=== PATIENT | female | born 1955 | race Caucasian/White ===

== ENCOUNTER → 2021-11-22 | Outpatient (CLI) | LOC: LABNPT 14:40 | PROVIDERS: ATTEND Registered Nurse Emergency | DX: Z20.822 Contact with and (suspected) exposure to COVID-19 (principal) | CPT/HCPCS: 87635 ==

== ENCOUNTER 2021-11-30 09:11 | Outpatient (CLI) | payer MEDICAID ==
[~2021-11-30] VITALS: Ht 152.4 cm; Wt 52.6 kg
[2021-11-30 09:19] VITALS: BP 128/74
[2021-11-30] MEDS ORDERED: ACETAMINOPHEN 500 MG TAB (TYLENOL) PO PRN (09:30)
[2021-11-30] MEDS ORDERED: EPINEPHrine INJECTION 1 MG/ML AMP IM PRN (09:30)
[2021-11-30] MEDS ORDERED: ONDANSETRON 4 MG/2 ML (SDV) Z0FRAN IV PRN (09:30)
[2021-11-30] MEDS ORDERED: diphenhydrAMINE 50 MG/ML INJ (BENADRYL) IV PRN (09:30)
[2021-11-30] MEDS ORDERED: SOTROVIMAB 500 MG/NS 100 ML IVPB IV ONE ×2 (09:30)
[2021-11-30 10:43] VITALS: BP 141/76
== END 2021-11-30 10:50 | disposition home or self-care (01) ==
LOC: INFUSION 09:11
PROVIDERS: ATTEND Registered Nurse Emergency
DX: U07.1 COVID-19 (principal)

== ENCOUNTER → 2022-01-31 | Outpatient (CLI) | payer MEDICARE, MEDICAID ==
[~2022-01-31] MED LIST: GUAI120013 PO; LEVO500T81 PO; PRD20T PO
--- NOTE | 2022-01-31 15:22 | Diagnostic Imaging Report ---
INDICATION: Cough. TIME OF EXAM: 2:59 PM. COMPARISON: No prior studies are available for comparison. FINDING: The heart size is normal. The pulmonary vascularity is unremarkable. The lungs are clear. No infiltrate, effusion, or pneumothorax is detected. IMPRESSION: No acute cardiopulmonary process is detected. Dictated by: Dictated on workstation # [id number]
== END ==
LOC: RAD FS 14:46
PROVIDERS: ATTEND Registered Nurse Emergency
DX: R05.1 Acute cough (principal)
CPT/HCPCS: 71046

== ENCOUNTER 2022-02-01 19:19 | Emergency (ER) | payer MEDICARE, MEDICAID ==
[~2022-02-01] VITALS: Ht 162 cm; Wt 79.0 kg
[2022-02-01] MEDS ORDERED: KETOROLAC 30 MG/ML VIAL IVP STA (19:20)
[2022-02-01 19:36] LABS: BASOPHILS % (AUTO) 0 % (0-10); EOSINOPHILS # (AUTO) 0.2 10^3/uL (0.0-0.3); EOSINOPHILS % (AUTO) 2 % (0-10); HEMATOCRIT 37 % (35-52); HEMOGLOBIN 12.4 g/dL (11.5-16.0); LYMPHOCYTES # (AUTO) 1.7 10^3/uL (1.0-4.0); LYMPHOCYTES % (AUTO) 16 % (12-44); MEAN CORPUSCULAR HEMOGLOBIN 28 pg (25-34); MEAN CORPUSCULAR HGB CONC 34 g/dL (32-36); MEAN CORPUSCULAR VOLUME 85 fL (80-99); MEAN PLATELET VOLUME 10.4 fL (9.0-12.2); MONOCYTES # (AUTO) 0.7 10^3/uL (0.0-1.0); MONOCYTES % (AUTO) 7 % (0-12); NEUTROPHILS # (AUTO) 8.3 10^3/uL (1.8-7.8); NEUTROPHILS % (AUTO) 75 % (42-75); PLATELET COUNT 239 10^3/uL (130-400); WHITE BLOOD COUNT 11.1 10^3/uL (4.3-11.0)
[2022-02-01 19:37] VITALS: BP 131/116
--- NOTE | 2022-02-01 19:59 | Diagnostic Imaging Report ---
INDICATION: cough, left sided chest pain COMPARISON: 01/31/2022 FINDINGS: Single frontal view of the chest demonstrates normal heart size and pulmonary vascularity. The lungs are well aerated and clear. No large pleural effusion or pneumothorax is seen. The visualized osseous structures show no acute abnormalities. IMPRESSION: 1. No acute cardiopulmonary process. Dictated by: Dictated on workstation # [id number]
[2022-02-01 20:02] LABS: ALKALINE PHOSPHATASE 61 U/L (40-136); BILIRUBIN,TOTAL 0.2 MG/DL (0.1-1.0); BUN/CREATININE RATIO 19; CALCIUM 8.9 MG/DL (8.5-10.1); CARBON DIOXIDE 22 MMOL/L (21-32); CHLORIDE 103 MMOL/L (98-107); GFR ESTIMATED 81; GLUCOSE 121 MG/DL (70-105); MAGNESIUM 1.8 MG/DL (1.6-2.4); SODIUM 138 MMOL/L (135-145)
[2022-02-01 20:03] LABS: ALANINE AMINOTRANSFERASE 12 U/L (0-55); LIPASE 33 U/L (8-78); TOTAL PROTEIN 7.4 GM/DL (6.4-8.2)
[2022-02-01 20:09] LABS: BILIRUBIN,URINE NEGATIVE (NEGATIVE); CLARITY,URINE CLEAR; COLOR,URINE YELLOW; GLUCOSE, URINE (UA) NEGATIVE (NEGATIVE); KETONES,URINE NEGATIVE (NEGATIVE); LEUKOCYTE ESTERASE ,URINE 2+ (NEGATIVE); NITRITE,URINE NEGATIVE (NEGATIVE); PH,URINE 6.5 (5-9); PROTEIN,URINE NEGATIVE (NEGATIVE)
--- NOTE | 2022-02-01 20:09 | ED Chest Pain ---
General Chief Complaint: Chest Pain Stated Complaint: CP Nursing Triage Note: PT PRESENT VIA EMS WITH C/O CHEST PAIN THAT STARTED YESTERDAY. REPORTS PAIN IS LOCATED UNDER HER LEFT BREAST AND DOES NOT RADIATE. REPORTS THE PAIN IS SHARP AND WORSE WITH MOVEMENT Source: patient, EMS History of Present Illness Date Seen by Provider: Feb 01, 2022 Time Seen by Provider: 19:19 Initial Comments 67-year-old female presenting from [place] [facility] by EMS with complaints of pain and the left chest under her breast. This started yesterday and she was seen in the clinic for it. She also has been having a nonproductive cough. She had a chest x-ray yesterday that did not show any acute process in her lungs and chest. She continued to have pain and at times is causing spasms. She is holding her breath with the pain at times as well. EMS was called to bring her to the emergency department tonight since she continued to have pain throughout the day. She denies having nausea, fever, vomiting, chills, headache, abdominal pain. She denies having pain like this in the past. She had not taken anything for the pain at home prior to coming. Timing/Duration: 1-2 days Severity/Quality: severe, sharp Location: other (Under her left breast) Radiation: no radiation Activities at Onset: none Prior CP/Workup: no prior chest pain, no prior cardiac workup ASA po QM CONSULTANT: Yes (EMS administered 324 mg ) NTG SL QM CONSULTANT: No Associated Symptoms: No abdominal pain, No back pain, No diaphoresis, No dizziness, No edema, No fatigue, No fever/chills, No headache, No heartburn, No nausea/vomiting, No rash, No shortness of breath, No swelling/lump in chest, No syncope, No weakness Allergies and Home Medications Allergies Coded Allergies: No Known Drug Allergies (Unverified , 11/23/21) Patient Home Medication List Home Medication List Reviewed: Yes Guaifenesin (Mucinex) 1,200 Mg Tab.er.12h, 1,200 MG PO BID Prescribed by: RAFA MARTE on 02/01/222125 Levofloxacin (Levofloxacin) 500 Mg Tablet, 500 MG PO DAILY Prescribed by: RAFA CHAWLAYART on 02/01/222125 Prednisone (Prednisone) 20 Mg Tab, 40 MG PO DAILY Prescribed by: RAFA MARTE on 02/01/222125 Review of Systems Review of Systems Constitutional: No chills, No fever EENTM: Nose Congestion (Mild amount of congestion and cough with congestion draining down the back of her throat) Respiratory: Cough; Denies Shortness of Air, Denies Stridor, Denies Wheezing Cardiovascular: See HPI; Denies Edema, Denies Lightheadedness Gastrointestinal: No Symptoms Reported Musculoskeletal: muscle cramps (left chest wall under her left breast) Skin: no symptoms reported Psychiatric/Neurological: Anxiety Past Nnmyyoh-Eutkjn-Nnwbbh Hx Patient Social History Tobacco Use?: No Smoking Status: Former Smoker Substance use?: No Alcohol Use?: No Pt feels they are or have been: No Immunizations Up To Date Tetanus Booster (TDap): Unknown Influenza Vaccine Up-to-Date: Yes; Up-to-Date Seasonal Allergies Seasonal Allergies: No Past Medical History Surgeries: Yes Coronary Stent, Hysterectomy Respiratory: No Cardiac: Yes (Cardiac Arrest) Heart Attack, High Cholesterol, Hypertension Neurological: Yes (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 0oz. [id number]; 30.00 BMI Method:Stated General Appearance: Chronically ill, Mild Distress HEENT: PERRL/EOMI, Pharynx Normal Neck: Full Range of Motion, Supple Respiratory: Chest Non Tender, No Accessory Muscle Use, No Respiratory Distress, Decreased Breath Sounds (with transmitted upper airway congestion sounds) Cardiovascular: Regular Rate, Rhythm, No Edema, Normal Peripheral Pulses Gastrointestinal: Normal Bowel Sounds, No Pulsatile Mass, Non Tender, Soft Rectal: Deferred Extremity: Normal Capillary Refill, Normal Inspection, Non Tender, No Calf Tenderness, No Pedal Edema Neurologic/Psychiatric: Alert, Oriented x3, straddle buggy operator II-XII Norm as Tested Skin: Normal Color, Warm/Dry Focused Exam Lactate Level 02/01/22 19:20: Lactic Acid Level 1.26 Lactic Acid Level Laboratory Tests Test 02/01/22 19:20 Lactic Acid Level 1.26 MMOL/L (0.50-2.00) Progress/Results/Core Measures Results/Orders Lab Results Laboratory Tests Test 02/01/22 19:20 02/01/22 20:00 Range/Units White Blood Count 11.1 H 4.3-11.0 10^3/uL Red Blood Count 4.36 3.80-5.11 10^6/uL Hemoglobin 12.4 11.5-16.0 g/dL Hematocrit 37 35-52 % Mean Corpuscular Volume 85 80-99 fL Mean Corpuscular Hemoglobin 28 25-34 pg Mean Corpuscular Hemoglobin Concent 34 32-36 g/dL Red Cell Distribution Width 13.8 10.0-14.5 % Platelet Count 239 130-400 10^3/uL Mean Platelet Volume 10.4 9.0-12.2 fL Immature Granulocyte % (Auto) 0 % Neutrophils (%) (Auto) 75 42-75 % Lymphocytes (%) (Auto) 16 12-44 % Monocytes (%) (Auto) 7 0-12 % Eosinophils (%) (Auto) 2 0-10 % Basophils (%) (Auto) 0 0-10 % Neutrophils # (Auto) 8.3 H 1.8-7.8 10^3/uL Lymphocytes # (Auto) 1.7 1.0-4.0 10^3/uL Monocytes # (Auto) 0.7 0.0-1.0 10^3/uL Eosinophils # (Auto) 0.2 0.0-0.3 10^3/uL Basophils # (Auto) 0.0 0.0-0.1 10^3/uL Immature Granulocyte # (Auto) 0.0 0.0-0.1 10^3/uL Prothrombin Time 14.0 12.2-14.7 SEC INR Comment 1.0 0.8-1.4 Activated Partial Thromboplast Time 31 24-35 SEC Sodium Level 138 135-145 MMOL/L Potassium Level 4.0 3.6-5.0 MMOL/L Chloride Level 103 98-107 MMOL/L Carbon Dioxide Level 22 21-32 MMOL/L Anion Gap 13 5-14 MMOL/L Blood Urea Nitrogen 15 7-18 MG/DL Creatinine 0.80 0.60-1.30 MG/DL Estimat Glomerular Filtration Rate 81 BUN/Creatinine Ratio 19 Glucose Level 121 H 70-105 MG/DL Lactic Acid Level 1.26 0.50-2.00 MMOL/L Calcium Level 8.9 8.5-10.1 MG/DL Corrected Calcium 8.9 8.5-10.1 MG/DL Magnesium Level 1.8 1.6-2.4 MG/DL Total Bilirubin 0.2 0.1-1.0 MG/DL Aspartate Amino Transf (AST/SGOT) 20 5-34 U/L Alanine Aminotransferase (ALT/SGPT) 12 0-55 U/L Alkaline Phosphatase 61 40-136 U/L Myoglobin < 21.0 10.0-92.0 NG/ML Troponin I < 0.30 <0.30 NG/ML Pro-B-Type Natriuretic Peptide 889.1 H <75.0 PG/ML Total Protein 7.4 6.4-8.2 GM/DL Albumin 4.0 3.2-4.5 GM/DL Lipase 33 8-78 U/L Urine Color YELLOW Urine Clarity CLEAR Urine pH 6.5 5-9 Urine Specific [place] 1.015 L 1.016-1.022 Urine Protein NEGATIVE NEGATIVE Urine Glucose (UA) NEGATIVE NEGATIVE Urine Ketones NEGATIVE NEGATIVE Urine Nitrite NEGATIVE NEGATIVE Urine Bilirubin NEGATIVE NEGATIVE Urine Urobilinogen 0.2 < = 1.0 MG/DL Urine Leukocyte Esterase 2+ H NEGATIVE Urine RBC (Auto) NEGATIVE NEGATIVE Urine RBC NONE /HPF Urine WBC 25-50 H /HPF Urine Squamous Epithelial Cells 25-50 H /HPF Urine Crystals NONE /LPF Urine Bacteria FEW H /HPF Urine Casts NONE /LPF Urine Mucus NEGATIVE /LPF Urine Culture Indicated YES My Orders Orders - RAFA MARTE MD Cbc With Automated Diff (02/01/22 19:20) Magnesium (02/01/22 19:20) Chest 1 View Ap/Pa Only (02/01/22 19:20) Ekg Tracing (02/01/22 19:20) Comprehensive Metabolic Panel (02/01/22 19:20) Myoglobin Serum (02/01/22 19:20) Protime With Inr (02/01/22 19:20) Partial Thromboplastin Time (02/01/22 19:20) O2 (02/01/22 19:20) Monitor-Rhythm Ecg Trace Only (02/01/22 19:20) Ed Iv/Invasive Line Start (02/01/22 19:20) Lipase (02/01/22 19:20) Troponin I Fs (02/01/22 19:20) Probnp Fs (02/01/22 19:20) Blood Culture (02/01/22 19:20) Lactic Acid Analyzer (02/01/22 19:20) Ua Culture If Indicated (02/01/22 19:20) Ketorolac Injection (Toradol Injection) (02/01/22 19:20) Orphenadrine Inj (Ed Only) (Norflex Inje (02/01/22 20:15) Fentanyl Inj (Sublimaze Injection) (02/01/22 20:15) Ct Angio Chest W (02/01/22 20:15) Dexamethasone Injection (Decadron Inje (02/01/22 20:15) Urine Culture (02/01/22 20:00) Iohexol Injection (Omnipaque 350 Mg/Ml 1 (02/01/22 20:30) Received Contrast (Hold Metformin- Contr (02/01/22 20:30) Sodium Chloride Flush (Catheter Flush Sy (02/01/22 20:30) Ns (Ivpb) (Sodium Chloride 0.9% Ivpb Bag (02/01/22 20:30) Ceftriaxone 1 Gm Pre-Mix (Rocephin 1 Gm (02/01/22 20:31) Medications Given in ED Current Medications Medications Dose Ordered Sig/Daniella Route Start Time Stop Time Status Last Admin Dose Admin Iohexol 100 ml ONCE ONCE IV 02/01/22 20:30 02/01/22 20:31 DC 02/01/22 20:51 80 ML Sodium Chloride 10 ml NEEDED PRN IV 02/01/22 20:30 02/01/22 20:52 10 ML Sodium Chloride 100 ml ONCE ONCE IV 02/01/22 20:30 02/01/22 20:31 DC 02/01/22 20:52 100 ML Vital Signs/I&O 02/01/22 02/01/22 02/01/22 02/01/22 19:37 19:37 19:45 20:11 Temp 37.7 Pulse 95 90 85 Resp 26 22 20 B/P (MAP) 131/116 (121) 136/106 149/68 Pulse Ox 91 91 91 95 O2 Delivery Room Air Room Air Room Air Nasal Cannula O2 Flow Rate 2.00 02/01/22 20:56 Pulse 77 Resp 18 B/P (MAP) 156/74 Pulse Ox 99 O2 Delivery Nasal Cannula O2 Flow Rate 2.00 Blood Pressure Mean: 116 Progress Progress Note #1: Progress Note obtain xrays to look for pneumonia or effusion or mass to cause her pain in chest. check labs to look for abnromality with blood count, electrolytes, cardiac enzymes, blood cultures with lactic acid, UA, coags. Give Toradol to try and help with pain in chest Differential diagnosis includes pleurisy, pneumonia, acute coronary syndrome, myocardial infarction, chest wall pain, chest wall strain Progress Note #2: Progress Note Electrocardiogram shows normal sinus rhythm without ST elevation. She does have a prolonged QT interval with a QTc interval of 527 ms this is new from her prior tracing done in 2019. She has no acute significant normality on her chest x-ray and it appears similar to the one done yesterday. Her labs for her CBC show white blood cell count at the upper limit of normal of 11.1. Her chemistry panel appears stable without acute significant abnormality. Her troponin is less than 0.3. Her proBNP is elevated to 889, but with age adjustment she is still less than 900. Will check CT angiogram to see if there is any PE or other abnormality to indicate a reason for her pleuritic chest pain. Try Decadron 10 mg IV, Norflex 60 mg IV, Fentanyl 25 mcg IV to try and help with spasms of chest wall and pleuritic chest pain. Progress Note #3: Progress Note UA shows LE with WBC and Bacteria so will place pt on antibiotic to treat for UTI. Awaiting CT angiogram of Chest. Progress Note #4: Progress Note CT angiogram of the chest shows no pulmonary embolism. She has some patchy opacities in the right base of her lung which could be infiltrate versus atelectasis. She has some COPD changes throughout the lungs. She was given a dose of Rocephin to treat for the UTI will plan on discharging her with Levaquin and this will cover both urine as well as if there was a small infection in the right base of the lung. There is nothing acute in the left lung where she was complaining of pain. Will continue low-dose muscle relaxer and prednisone to treat for inflammation. Counseled on follow-up and return precautions. Encouraged to drink plenty of fluids and stay well-hydrated. Check back through the clinic for continued concerns. Initial ECG Impression Date: Feb 01, 2022 Initial ECG Impression Time: 19:18 Initial ECG Rate: 95 Initial ECG Rhythm: Normal Sinus Initial ECG Comparisson: Changed Comment Normal sinus rhythm with a heart rate of 95 bpm. Premature ventricular complexes. [place] interval [address] elevation. QT interval 419 ms with a QTc interval of 527 ms for prolonged QT interval. This is a change from her prior tracing in 2019. Diagnostic Imaging Diagonstic Imaging: Xray Plain Films/CT/US/NM/MRI: chest Comments [facility]. [place], [place] NAME: OMID SUE [facility] REC#: [id number] PT STATUS: REG ER : 1955 PHYSICIAN: RAFA MARTE MD ADMIT DATE: 02/01/22/ER FS Draft Date of Exam:02/01/22 CHEST 1 VIEW AP/PA ONLY INDICATION: cough, left sided chest pain COMPARISON: 01/31/2022 FINDINGS: Single frontal view of the chest demonstrates normal heart size and pulmonary vascularity. The lungs are well aerated and clear. No large pleural effusion or pneumothorax is seen. The visualized osseous structures show no acute abnormalities. IMPRESSION: 1. No acute cardiopulmonary process. Dictated on workstation # [id number] Dict: 02/01/221949 Trans: 02/01/221957 [place] [id number] Interpreted by: ALESSIO ANGELES MD Electronically signed by: Reviewed: Reviewed by Me Diagonstic Imaging: CT Plain Films/CT/US/NM/MRI: chest Comments NAME: OMID SUE [facility] REC#: [id number] PT STATUS: REG ER : 1955 PHYSICIAN: RAFA MARTE MD ADMIT DATE: 02/01/22/ER FS Draft Date of Exam:02/01/22 CT ANGIO CHEST W PROCEDURE: CT angiography of the chest with contrast. TECHNIQUE: Multiple contiguous axial images were obtained through the chest after uneventful bolus administration of intravenous contrast. 3D reconstructed CTA MIP acquisitions were also performed. Auto Exposure Controls were utilized during the CT exam to meet ALARA standards for radiation dose reduction. INDICATION: Pleuritic chest pain. Cough. COMPARISON: None. FINDINGS: There is no abnormal intraluminal filling defect to the segmental division of the pulmonary arteries. Evaluation beyond this is suboptimal secondary to motion artifact. Thoracic aorta is normal in course and caliber. There is moderate scattered calcified and noncalcified atherosclerosis, but by NASCET criteria, there is no focal significant stenosis. There is no evidence of dissection or aneurysm. Heart size is within normal limits. No large pericardial effusion is seen. No pathologically enlarged or morphologically abnormal adenopathy is identified within the mediastinum, dimple or axilla. Evaluation ot the lung ornelas demonstrates asymmetric patchy airspace densities within the posterior margins the right lower lobe. Evaluation is moderately degraded secondary to motion artifact. Pulmonary nodule may be obscured. There does appear to be background mild emphysematous disease. No large effusion or pneumothorax is seen on either side. Calcified pleural plaques are noted. Osseous structures show no acute abnormality. No lytic or blastic bony lesions are seen. Included portions of the upper abdomen are unremarkable. IMPRESSION: 1. No pulmonary embolus. 2. Patchy airspace opacities within the posterior right lung base. Findings could be on the basis of focal infiltrate/pneumonia. Atelectasis is not entirely excluded. Follow-up to resolution is recommended. 3. Background mild emphysematous changes. 4. Calcific pleural plaques. Please correlate with history of previous asbestos exposure. Dictated on workstation # [id number] Dict: 02/01/222055 Trans: 02/01/222103 [facility] [id number] Interpreted by: ALESSIO ANGELES MD Electronically signed by: Reviewed: Reviewed by Me Departure Impression Primary Impression: Pleuritic chest pain Additional Impression: Cystitis without hematuria Disposition: 01 HOME, SELF-CARE Condition: Stable Departure-Patient Inst. Decision time for Depature: 21:21 Referrals: MARCK BRITTON MD (PCP) Primary Care Physician Patient Instructions: Pleuritic Chest Pain ED, Urinary Tract Infection, Adult ED Add. Discharge Instructions: Your tests tonight do not show any indication of a heart attack causing the pain in your chest. There are no signs of mass or fluid build up on your xray or CT scan of the chest. We also did not see any blood clot in your lungs to cause your symptoms. This could be a viral inflammation of the lining around the lungs causing pleuritic or sharp chest pains. The steroid will help to treat that along with the muscle relaxer. There are some emphysema changes or COPD changes seen on the CT scan of your chest. Take Mucinex twice a day with a big glass of water to help with cough and congestion. For the urine infection take the full course of antibiotics to treat for UTI. Drink plenty of water and stay well hydrated. Check back with clinic for continued concerns. All discharge instructions reviewed with patient and/or family. Voiced understanding. Scripts Guaifenesin (Mucinex) 1,200 Mg Tab.er.12h 1200 MG PO BID for cough/congestion for 7 Days, #14 TAB 0 Refills Prov: RAFA MARTE MD 02/01/22 Levofloxacin (Levofloxacin) 500 Mg Tablet 500 MG PO DAILY for UTI for 7 Days, #7 TAB 0 Refills Prov: RAFA MARTE MD 02/01/22 Prednisone (Prednisone) 20 Mg Tab 40 MG PO DAILY for pleuritic chest pain for 5 Days, #10 TAB 0 Refills Prov: RAFA MARTE MD 02/01/22 RAFA MARTE MD Feb 01, 2022 20:09
[2022-02-01 20:15] LABS: BACTERIA,URINE FEW /HPF; SQUAMOUS EPITHELIAL CELL,UR 25-50 /HPF; WBC,URINE 25-50 /HPF
[2022-02-01] MEDS ORDERED: fentaNYL INJ 100 MCG/2 ML AMP IVP STA (20:15)
[2022-02-01] MEDS ORDERED: ORPHENADRINE 60 MG/2 ML (NORFLEX) AMP (ED ONLY) IVP STA (20:15)
[2022-02-01] MEDS ORDERED: NS 100 ML (IVPB) BAG IV ONE (20:30)
[2022-02-01] MEDS ORDERED: IOHEXOL 350 MG/ML 100 ML (OMNIPAQUE 350) VIAL IV ONE (20:30)
[2022-02-01] MEDS ORDERED: CATHETER FLUSH 10 ML SYR IV PRN (20:30)
[2022-02-01] MEDS ORDERED: HOLD METFORMIN - RECEIVED CONTRAST 20 ML VIAL IV SCH (20:30)
[2022-02-01] MEDS ORDERED: cefTRIAXone 1 GM PRE-MIX 50 ML IV STA (20:31)
--- NOTE | 2022-02-01 21:06 | Diagnostic Imaging Report ---
PROCEDURE: CT angiography of the chest with contrast. TECHNIQUE: Multiple contiguous axial images were obtained through the chest after uneventful bolus administration of intravenous contrast. 3D reconstructed CTA MIP acquisitions were also performed. Auto Exposure Controls were utilized during the CT exam to meet ALARA standards for radiation dose reduction. INDICATION: Pleuritic chest pain. Cough. COMPARISON: None. FINDINGS: There is no abnormal intraluminal filling defect to the segmental division of the pulmonary arteries. Evaluation beyond this is suboptimal secondary to motion artifact. Thoracic aorta is normal in course and caliber. There is moderate scattered calcified and noncalcified atherosclerosis, but by NASCET criteria, there is no focal significant stenosis. There is no evidence of dissection or aneurysm. Heart size is within normal limits. No large pericardial effusion is seen. No pathologically enlarged or morphologically abnormal adenopathy is identified within the mediastinum, dimple or axilla. Evaluation ot the lung ornelas demonstrates asymmetric patchy airspace densities within the posterior margins the right lower lobe. Evaluation is moderately degraded secondary to motion artifact. Pulmonary nodule may be obscured. There does appear to be background mild emphysematous disease. No large effusion or pneumothorax is seen on either side. Calcified pleural plaques are noted. Osseous structures show no acute abnormality. No lytic or blastic bony lesions are seen. Included portions of the upper abdomen are unremarkable. IMPRESSION: 1. No pulmonary embolus. 2. Patchy airspace opacities within the posterior right lung base. Findings could be on the basis of focal infiltrate/pneumonia. Atelectasis is not entirely excluded. Follow-up to resolution is recommended. 3. Background mild emphysematous changes. 4. Calcific pleural plaques. Please correlate with history of previous asbestos exposure. Dictated by: Dictated on workstation # [id number]
[2022-02-01] MEDS ORDERED: PRD20T PO (21:26)
[2022-02-01] MEDS ORDERED: GUAI120013 PO (21:26)
[2022-02-01] MEDS ORDERED: LEVO500T81 PO (21:26)
== END 2022-02-01 21:39 | disposition home or self-care (01) ==
LOC: EDUNIT# 19:19 → ER FS 19:19
DX: R07.81 Pleurodynia (principal); N30.90 Cystitis, unspecified without hematuria; Z87.891 Personal history of nicotine dependence
CPT/HCPCS: 36415; 71045; 71275; 80053; 81000; 83605; 83690; 83735; 83874; 83880; 84484; 85025; 85610; 85730; 87040; 87088; 93005; 93041; Q9967

== ENCOUNTER 2022-05-30 14:38 | Emergency (ER) | payer MEDICARE, MEDICAID ==
[~2022-05-30] VITALS: Ht 152.4 cm; Wt 54.9 kg
[2022-05-30 14:44] VITALS: BP 148/74
--- NOTE | 2022-05-30 15:27 | ED Upper Extremity ---
General Chief Complaint: Upper Extremity Stated Complaint: RT FINGER RING STUCK Nursing Triage Note: Patient reports she fell and injured her right ring finger in March, states it has become swollen in the last several days. Patient has a ring on her finger that she cannot take off now due to the swelling. 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 The ring was getting tight from Saturday onwards and worsening today with swelling and bruising. Patient also has a fracture of her right fourth metacarpal bone which was diagnosed about 4 weeks ago. Patient is not wearing a brace or splint or cast. Denies sensory loss. Denies any recent falls Allergies and Home Medications Allergies Coded Allergies: No Known Drug Allergies (Unverified , 11/23/21) Patient Home Medication List Home Medication List Reviewed: Yes Guaifenesin (Mucinex) 1,200 Mg Tab.er.12h, 1,200 MG PO BID Prescribed by: RAAF MARTE on 02/01/222125 Levofloxacin (Levofloxacin) 500 Mg Tablet, 500 MG PO DAILY Prescribed by: RAFA MARTE on 02/01/222125 Prednisone (Prednisone) 20 Mg Tab, 40 MG PO DAILY Prescribed by: RAFA MARTE on 02/01/222125 Review of Systems Constitutional: no symptoms reported EENTM: no symptoms reported Respiratory: no symptoms reported Cardiovascular: no symptoms reported Gastrointestinal: no symptoms reported Genitourinary: no symptoms reported Musculoskeletal: joint pain, joint swelling Skin: no symptoms reported Psychiatric/Neurological: No Symptoms Reported Past Ahqmuhg-Ybsznd-Dielyn Hx Patient Social History Tobacco Use?: No Smoking Status: Former Smoker Substance use?: No Alcohol Use?: No Pt feels they are or have been: No Immunizations Up To Date Tetanus Booster (TDap): Unknown First/Initial COVID19 Vaccinat: Yes Second COVID19 Vaccination Marcus: Yes Seasonal Allergies Seasonal Allergies: No Past Medical History Surgery/Hospitalization HX: Hypothyroidism; HTN; High Cholesterol; Osteoporosis; GERD; Depression Surgeries: Yes Coronary Stent, Hysterectomy Respiratory: No Cardiac: Yes (Cardiac Arrest) Heart Attack, High Cholesterol, Hypertension Neurological: Yes (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 0oz. 52.280347tq; 23.00 BMI Method:Stated General Appearance: WD/WN, mild distress HEENT: PERRL/EOMI Neck: full range of motion Elbow/Forearm: normal inspection, non-tender, no evidence of injury, normal ROM Wrist: Yes normal inspection, Yes non-tender, Yes no evidence of injury, Yes normal ROM Hand: Right (bruising and swelling on the right fourth finger and MCP region. 2 molded rings are constricting the base of that finger with swelling above the ring. After ring was removed swelling and bruising seen in the area N/V bundle intact.), ecchymosis, limited ROM, soft tissue tenderness, stiffness, swelling Neurologic/Tendon: normal sensation, normal motor functions, normal tendon functions Neurologic/Psychiatric: no motor/sensory deficits, alert, normal mood/affect, oriented x 3 Progress/Results/Core Measures Results/Orders Vital Signs/I&O 05/30/22 14:44 Temp 36.8 Pulse 61 Resp 18 B/P (MAP) 148/74 (98) Pulse Ox 94 O2 Delivery Room Air Blood Pressure Mean: 98 Progress Progress Note : Progress Note 1. RING CONSTRICTION OF RIGHT 4th FINGER: - Ring cutter used to cut ring, with successful removal - advised ice and tylenol 2. CHRONIC 4th METACARPAL RIGHT FRACTURE: - XR was done in clinic 4 weeks ago, as per clinic record, nurse gave me printed xray result. 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 - Ulnar gutter splint given in ER today - Pt has ortho appointment tomorrow Diagnostic Imaging Diagonstic Imaging: Xray Plain Films/CT/US/NM/MRI: hand Comments X-ray right hand done in PCP clinic. Impression was acute fourth metacarpal fracture. This was done on April 12, 2022. Departure Impression Primary Impression: Ring or other jewelry causing external constriction, initial encounter Additional Impression: Fracture, metacarpal Qualified Codes: S62.304A - Unspecified fracture of fourth metacarpal bone, right hand, initial encounter for closed fracture Disposition: HOME, SELF-CARE Condition: Improved Departure-Patient Inst. Referrals: MARCK BRITTON MD (PCP) Primary Care Physician Patient Instructions: Common Finger Injuries (DC), Hand Fracture (DC) Add. Discharge Instructions: Keep Ortho appointment tomorrow ice/ tylenol for pain - Ulnar gutter splint given in ER today All discharge instructions reviewed with patient and/or family. Voiced understanding. VINICIO VILLEGAS MD May 30, 2022 15:27
== END 2022-05-30 15:39 | disposition home or self-care (01) ==
LOC: EDUNIT# 14:38 → ER FS 14:42
DX: S62.304A Unspecified fracture of fourth metacarpal bone, right hand, initial encounter for closed fracture (principal); S60.444A External constriction of right ring finger, initial encounter; Z87.891 Personal history of nicotine dependence; W49.04XA Ring or other jewelry causing external constriction, initial encounter
CPT/HCPCS: 93005; 99281

== ENCOUNTER → 2022-05-31 | Outpatient (CLI) | payer MEDICARE, MEDICAID ==
--- NOTE | 2022-05-31 16:06 | Diagnostic Imaging Report ---
Indication: Pain in the right hand. Time of Exam: 3:05 PM No prior studies available for comparison. Fracture deformities of the distal radius ulnar noted which appear to be mostly healed. There is sclerosis and healing fractures of the distal 4th and 5th metacarpals as well. No other fractures are seen. Soft tissues are unremarkable. Impression: Posttraumatic changes of the distal radius and ulna as well as the 4th and 5th metacarpals, age indeterminate. Dictated by: Dictated on workstation # [id number]
== END ==
LOC: ORTHO 14:32
PROVIDERS: ATTEND Orthopaedic Surgery
DX: M79.641 Pain in right hand (principal)
CPT/HCPCS: 73130; G0463; 99203

== ENCOUNTER → 2022-07-05 | Outpatient (CLI) | payer MEDICARE, MEDICAID | LOC: ORTHO 15:47 | PROVIDERS: ATTEND Orthopaedic Surgery | DX: S62.306D Unspecified fracture of fifth metacarpal bone, right hand, subsequent encounter for fracture with routine healing (principal); X58.XXXD Exposure to other specified factors, subsequent encounter ==

== ENCOUNTER → 2022-07-05 | Outpatient (CLI) | payer MEDICARE, MEDICAID ==
--- NOTE | 2022-07-05 14:04 | Diagnostic Imaging Report ---
INDICATION: Follow-up fractures right hand. EXAMINATION: Right hand 07/05/2022 COMPARISON: 05/31/2022 FINDINGS: Again seen is deformity of the distal radius and ulna stable from previous imaging consistent with chronic fractures. The fractures of the distal 4th and 5th metacarpals again noted with surrounding callus formation which may have increased since previous imaging suggesting subacute fractures. There is a lucency at the base of the proximal 4th phalanx intra-articular in nature. Diastases is approximately 2 mm. There is foreshortening of the distal 5th phalanx which could be congenital or posttraumatic. This is stable. IMPRESSION: 1. Likely subacute healing fractures of the 4th and 5th metacarpals. 2. Intra-articular fracture of the proximal 4th phalanx with no significant changes of healing. Remaining findings chronic in appearance. Dictated by: Dictated on workstation # [id number]
== END ==
LOC: RAD FS 11:28
PROVIDERS: ATTEND Orthopaedic Surgery
DX: Z47.89 Encounter for other orthopedic aftercare (principal); S62.610A Displaced fracture of proximal phalanx of right index finger, initial encounter for closed fracture; X58.XXXD Exposure to other specified factors, subsequent encounter
CPT/HCPCS: 73130

== ENCOUNTER 2023-02-02 00:50 | Emergency (ER) | payer MEDICARE, MEDICAID ==
[~2023-02-02] VITALS: Ht 152 cm; Wt 72.5 kg
[~2023-02-02 00:50] MED LIST changes: +LEVO-55 PO; -LEVO500T81 PO
[2023-02-02] MEDS ORDERED: TETANUS,DIPTH,PERTUSS P/F (BOOSTRIX) 0.5 ML VIAL IM ONE (01:15)
--- NOTE | 2023-02-02 01:19 | ED Fall/Injury ---
General Chief Complaint: Trauma-Non Activation Stated Complaint: FALL Nursing Triage Note: PATIENT ARRIVED VIA EMS WITH COMPLAINT OF FALL, PATIENT STATES THIS IS NOT HER FIRST FALL, DENIES LOC, VOMITTING. PATIENT HAS HEMATOMA RIGHT SIDE OF HEAD, LEFT FORTH DIGIT BRUISED AND DEFORMED, LEFT FIFTH DIGIT BRUISED AND SWOLLEN Source: patient, EMS Exam Limitations: no limitations History of Present Illness Date Seen by Provider: Feb 02, 2023 Time Seen by Provider: 00:50 Initial Comments 68-year-old female with past medical history of hypertension, hyperlipidemia, and prior cardiac arrest in the remote past with residual L sided weakness coming in via EMS from the assisted living facility after she tripped and fell hitting her head. She has had a couple trips recently and has had multiple recent injuries. She has not seen anybody for these as of yet. She fell within the past few days in her left hand, did not see anybody. Tonight she hit her head, is unsure if she passed out, and also landed on her left shoulder causing pain. She is unsure of her last tetanus vaccine. She does not take any blood thinners. Denies any neck or back pain, weakness, numbness, chest pain, shortness of breath, palpitations, abdominal pain, nausea, vomiting, diarrhea, or any other concerns Allergies and Home Medications Allergies Coded Allergies: No Known Drug Allergies (Unverified , 11/23/21) Patient Home Medication List Home Medication List Reviewed: Yes Guaifenesin (Mucinex) 1,200 Mg Tab.er.12h, 1,200 MG PO BID Prescribed by: RAFA Gillis ENYART on 02/01/222125 Levofloxacin (Levofloxacin) 500 Mg Tablet, 500 MG PO DAILY Prescribed by: RAFA Gillis ENYART on 02/01/222125 Prednisone (Prednisone) 20 Mg Tab, 40 MG PO DAILY Prescribed by: RAFA Gillis ENYART on 02/01/222125 Review of Systems Review of Systems Constitutional: No fever Eyes: No Symptoms Reported Ears, Nose, Mouth, Throat: no symptoms reported Respiratory: no symptoms reported Cardiovascular: no symptoms reported Gastrointestinal: no symptoms reported Genitourinary: no symptoms reported Musculoskeletal: see HPI Skin: no symptoms reported Psychiatric/Neurological: See HPI Past Aknozny-Tmpzrx-Fkpwwk Hx Patient Social History Tobacco Use?: No Immunizations Up To Date Tetanus Booster (TDap): Unknown Influenza Vaccine Up-to-Date: Yes; Up-to-Date First/Initial COVID19 Vaccinat: 2020 Second COVID19 Vaccination Marcus: 2020 Seasonal Allergies Seasonal Allergies: No Past Medical History Surgery/Hospitalization HX: HTN, OSTEOPOROSIS, DEPRESSION, HYPOTHYROIDISM, HYPERLIPIDEMIA Surgeries: Yes Coronary Stent, Hysterectomy Respiratory: No Cardiac: Yes (Cardiac Arrest) Heart Attack, High Cholesterol, Hypertension Neurological: Yes (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 0oz. 52.420524cg; 31.00 BMI Method:Stated General Appearance: WD/WN, no apparent distress HEENT: PERRL/EOMI, pharynx normal, other (Significant hematoma to right forehead) Neck: non-tender, full range of motion, supple, normal inspection Cardiovascular: regular rate, rhythm, no edema, no murmur Respiratory: chest non-tender, lungs clear, normal breath sounds, no respiratory distress, no accessory muscle use Gastrointestinal: normal bowel sounds, non tender, soft; No distended, No guar ding, No rebound Back: normal inspection, no CVA tenderness, no vertebral tenderness Extremities: normal range of motion, no pedal edema, no calf tenderness, normal capillary refill, other (Left hand with bruising along the proximal ring finger, left shoulder with tenderness but no abnormalities with inspection, normal range of motion) Neurologic/Psychiatric: no motor/sensory deficits, alert, normal mood/affect, oriented x 3 Skin: normal color, warm/dry Amaury Coma Score Best Eye Response: (4) Open Spontaneously Best Verbal Response: (5) Oriented Best Motor Response: (6) Obeys Commands Progress/Results/Core Measures Results/Orders My Orders Orders - RAFAEL JUAREZ MD Ct Head/Cervical Spine Wo (02/02/23 01:04) Hand 3 View Left (02/02/23 01:04) Shoulder 3 View Left (02/02/23 01:04) Dipht,Pertuss(Acell),Tet Adult (Boostrix (02/02/23 01:15) Medications Given in ED Current Medications Medications Dose Ordered Sig/Daniella Route Start Time Stop Time Status Last Admin Dose Admin Diphtheria/ Tetanus/Acell Pertussis 0.5 ml ONCE ONCE IM 02/02/23 01:15 02/02/23 01:16 DC 02/02/23 01:43 0.5 ML Vital Signs/I&O 02/02/23 02/02/23 00:50 00:50 Temp 36.5 36.5 Pulse 89 89 Resp 20 20 B/P (MAP) 194/83 (120) 194/83 (120) Pulse Ox 93 93 O2 Delivery Room Air Room Air Blood Pressure Mean: 120 Progress Progress Note : Progress Note 68-year-old female presenting after mechanical fall. ABCs were intact, vital stable, GCS 15 on presentation. Significant hematoma to her right forehead, bruising to her left shoulder down her arm, bruising and pain to the left pinky finger. Tdap was updated today. CT head and cervical spine ordered as well as x-ray of the left shoulder and hand. Shoulder appears with nothing acute on my interpretation but her left pinky finger does have a fracture on my interpretation. CT head and cervical spine with no obvious displaced fracture or intracranial hemorrhage. Offered the patient pain medicine, but she does not want it at this time. Margret taped her finger fracture. I believe she is otherwise stable for discharge with outpatient follow-up. She was sent home with strict return precautions. Diagnostic Imaging Diagonstic Imaging: Xray (left hand and left shoulder), CT (head and c spine) Comments X-ray of the left hand on my interpretation with a proximal phalanx fracture of the left pinky finger at the distal aspect of it, it appears like it does go into the PIP joint, minimally displaced X-ray of the left shoulder ordered and interpreted by me showing no fracture or dislocation. CT head and cervical spine ordered and interpreted by me showing no obvious int racranial bleed or displaced fracture. Departure Impression Primary Impression: Closed fracture of proximal phalanx of left little finger Qualified Codes: S62.647A - Nondisplaced fracture of proximal phalanx of left little finger, initial encounter for closed fracture Disposition: HOME, SELF-CARE Condition: Stable Departure-Patient Inst. Decision time for Depature: 04:01 Referrals: MARCK BRITTON MD (PCP/Family) Primary Care Physician Patient Instructions: Hand Fracture ED Add. Discharge Instructions: Your left pinky finger does have a break in it. Leave it margret taped to the finger next to it for the next month. Follow-up with your regular doctor kendy kinsey this. Take Tylenol as needed for pain. Be sure to ask for assistance if you need help getting up and be sure to use her walker. If you feel unsafe getting up, you may need to change from assisted living to a full senior living to get more assistance. RAFAEL JUAREZ MD Feb 02, 2023 01:19
--- NOTE | 2023-02-02 05:48 | Diagnostic Imaging Report ---
PROCEDURE: CT head and CT cervical spine without contrast. TECHNIQUE: Multiple contiguous axial images were obtained through the brain and cervical spine without the use of intravenous contrast. Sagittal and coronal reformations through the cervical spine were then performed. Auto Exposure Controls were utilized during the CT exam to meet ALARA standards for radiation dose reduction. INDICATION: 68-year-old female injured in fall, presents with headache and neck pain. COMPARISONS: None. CT head without contrast: FINDINGS: Midline structures are not displaced. There is advanced for age generalized atrophy with involutional changes. There is no mass, mass effect, hydrocephalus or hemorrhage. Eid-white differentiation is maintained and there is no sulcal effacement. There are no abnormal extra-axial fluid collections or hemorrhage. Basilar cisterns appear normal. There is calcific atherosclerosis within the carotid siphons and visualized vertebral arteries. Sinuses, orbits and mastoid air cells are unremarkable. Bone windows show no calvarial changes. There is a large right frontal scalp hematoma. IMPRESSION: 1. Advanced for age generalized atrophy with involutional changes with background chronic areas of microvascular ischemic change. There is calcific atherosclerosis within the carotid siphons and visualized vertebral arteries. 2. Right frontal scalp hematoma. CT cervical spine with reconstructions: FINDINGS: Axial images in sagittal and coronal reconstructions of the cervical spine demonstrate moderate cervical spondylosis with multilevel hypertrophic facet changes. There is endplate sclerosis with marginal osteophytes at multiple vertebral levels. The vertebral bodies otherwise appear reasonably well aligned and vertebral body heights appear reasonably well-maintained. 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 There is otherwise no definite evidence of acute fracture or acute subluxation seen. Bilateral carotid bifurcation disease is seen. Lung apices show some bullous emphysematous changes. There is a small left apical nodule partially calcified, possibly a granuloma. IMPRESSION: 1. Moderate cervical spondylosis with multilevel hypertrophic facet changes. 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 No evidence of acute fracture or subluxation seen. 2. There is bilateral carotid bifurcation disease with calcific atherosclerosis. 3. There is a 7 mm nodule in the left lung apex portions of which are calcified and may be a granuloma, however, a repeat CT chest in 3 months is recommended. Dictated by: Dictated on workstation # [id number]
[2023-02-02 06:14] VITALS: BP 194/83
--- NOTE | 2023-02-02 06:42 | Diagnostic Imaging Report ---
INDICATION: Pain after fall FINDINGS: The alignment is normal. There are mild degenerative changes. No fracture or dislocation. Left lung is clear. Soft tissues are unremarkable. IMPRESSION: Mild degenerative changes, otherwise unremarkable. Dictated by: Dictated on workstation # [id number]
--- NOTE | 2023-02-02 07:12 | Diagnostic Imaging Report ---
HISTORY: Fall, left hand pain after injury. TECHNIQUE: 3 views left hand COMPARISON: None FINDINGS: The bones are diffusely osteopenic. There is deformity of the 4th and 5th metacarpals, likely from remote injury. There is a minimally laterally displaced oblique fracture of the 5th finger proximal phalanx along the shaft and head. This appears to extend up to the articular surface. There is a pin remaining in the 3rd finger middle phalanx. There is a swan-neck deformity of the 3rd finger. IMPRESSION: 1. Minimally displaced fracture of the left 5th finger proximal phalanx. 2. Additional chronic findings in the left hand. Dictated by: Dictated on workstation # [id number]
[2023-02-03] MEDS ORDERED: LORazepam INJ 2 MG/ML (ATIVAN) VIAL ONE (13:03)
[2023-02-03] MEDS ORDERED: HALOPERIDOL 5 MG/ML (HALDOL) VIAL ONE (13:03)
== END 2023-02-02 06:14 | disposition home or self-care (01) ==
LOC: EDUNIT# 00:55 → ER FS 00:59
DX: S62.617A Displaced fracture of proximal phalanx of left little finger, initial encounter for closed fracture (principal); S60.042A Contusion of left ring finger without damage to nail, initial encounter; S40.012A Contusion of left shoulder, initial encounter; S00.83XA Contusion of other part of head, initial encounter; Z23 Encounter for immunization; W01.10XA Fall on same level from slipping, tripping and stumbling with subsequent striking against unspecified object, initial encounter
CPT/HCPCS: 70450; 72125; 73030; 73130; 90715; 99283